=== PATIENT | male | born 2005 | race Caucasian/White ===

== ENCOUNTER 2025-08-08 16:29 | Outpatient (AMB) | payer BC, SELFPAY ==
--- OUTSIDE RECORDS SUMMARY | 2024-10-19 05:00 | XMS_ITS ---
Author Organization [facility] [address] Address [address] [place] [address] Care Team Providers Care Identifier Horse Name Role Phone CONCHITA JAMILAH Unavailable [phone] Encounters Encounter Location Date Provider Diagnosis [facility] [address] [place] [address] 10/19/2024 JAMILAH ARANGO Plan Of Treatment No Information Progress Notes * Douglas SUNDOB: [birth year] (20 yo M)Acc No.[id number]:10/19/2024 Progress Notes Patient: Douglas MENDIOLA Provider: Shahrzad ARANGO PA-C :2005 A ge:19 Y S ex:Male Date:10/19/2024 Address:[address] [facility] [id number] Subjective: * Chief Complaints: * * Medical History: Objective: * Vitals: Assessment: Plan: * Treatment: * Images: Billing Information: * Visit Code: * Procedure Codes: * Electronic signature of VANNA ARANGO PA-C on 08/08/2025 at 07:09 PM EDT Sign off status: Pending * Provider: Shahrzad ARANGO PA-C Date: 12/19/2023 Generated for Jorge velez/Tawana/Gia on: 0 08/08/2025 07:09 PM EDT
--- NOTE | 2025-08-08 16:31 | MHC.PC.OV ---
Vital Signs 08/08/25 16:44 Height 6 ft 3.12 in Weight 187 lb 8 oz BMI 23.4 BP 120/60 Blood Pressure Location Lt brachial Position Sitting Respiration 16 Pulse 81 Pulse Source Pulse Oximeter Temp 97.9 F Temp Source Oral Pulse Oximetry (%) 97 Oxygen Delivery Method Room Air Intake Visit Reasons: Severe Migraines Intake Note: establish care Glassware Defect Repairer Required: No Accompanied by: Self / Same As Patient Allergies No Known Allergies Allergy (Verified 08/08/25 16:31) Tobacco use date assessed: 08/08/25 Dental Screening Dental Screen Date: 08/08/25 Did you have a dental visit in the last 12 months?: Yes Did you have a dental problem in the last 6 months where you did not have access to dental care?: No Was dental information given to patient?: Patient has dentist HPI HPI Comments History of Present Illness Details History of Present Illness The patient is a 20-year-old male presenting to [facility] care and discuss ADHD and history of migraines. Attention-Deficit/Hyperactivity Disorder (ADHD): - Diagnosed by a sheltered workshop executive director. - Takes lisdexamfetamine (Vyvanse) 40 mg as needed, effective in focus and migraine prevention. History of migraines: - Previously experienced, now mitigated by lisdexamfetamine. Tobacco use: - Smoking since age 12, now minimal and reducing. - Uses Nicotrol for cessation, smokes approximately two daily. Health Maintenance - Discussed comprehensive metabolic panel, hemoglobin A1c, lipid panel, complete blood count, vitamin D, magnesium, HIV, and hepatitis screening. - Emphasized the importance of good nutrition and avoiding processed foods for overall health. - Discussed quitting smoking with the aid of nicotine replacement therapy like Nicotrol. - No STI screening opted by the patient at this time. Review of Systems - HEENT: Denies visual changes, hearing loss. - Respiratory: Denies wheezing, shortness of breath. - Cardiovascular: Denies chest pain or palpitations. - Gastrointestinal: Denies abdominal pain, changes in bowel habits. - Neurological: Denies current headaches or dizziness. - Psychological: Reports appropriate mood and affect; denies depressive symptoms or anxiety. 10-point ROS reviewed and negative except as noted in HPI Medication History - Lisdexamfetamine 40 mg used as needed for ADHD and migraine prevention. - Nicotine nasal spray for smoking cessation. Current Substance Use - Smokes approximately two cigarettes daily. - Prior use of vaping, now ceased. - Occasional cannabis use. Substance Use History - Began smoking at age 12, primarily tobacco and minimal cannabis use. Past Medical History - Attention-Deficit/Hyperactivity Disorder (ADHD). - History of migraines. Family History - Positive for maternal and paternal family members with cancer, including breast cancer and other unspecified cancers. 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 - Sufficient sleep with current six to seven hours per night. - Reports good nutrition based on recommendations from knowledgeable peer. - Assisting in smoking cessation; currently using Nicotrol spray. Physical Exam - General- Well-appearing, in no acute distress. - Vitals- Within normal limits. - HEENT- Normocephalic, atraumatic, PERRLA, EOMI, conjunctiva clear, sclera anicteric, oropharynx clear, mucous membranes moist, TMs intact bilaterally. - Neck- Supple, no lymphadenopathy, no thyromegaly, no JVD or carotid bruits. - Cardiovascular- RRR, normal S1/S2, no murmurs, rubs, or gallops, peripheral pulses 2+ and symmetric, no edema. - Respiratory- Lungs clear to auscultation bilaterally, no wheezes, rales, or rhonchi, normal effort. - Abdomen- Soft, non-tender, non-distended, normoactive bowel sounds, no hepatosplenomegaly, no masses. - MSK- Full range of motion, no joint swelling or deformity, normal gait. - Skin- Warm, dry, intact, no rashes, lesions, or pallor. - Neuro- Alert and oriented x3, cranial nerves II-XII intact, strength 5/5 throughout, sensation intact, reflexes 2+ symmetric, normal coordination and gait. - Psych- Appropriate mood and affect, normal judgment and insight. Discussion Notes We discussed the patient's history of ADHD and migraines. The current management involves intermittent use of lisdexamfetamine, which has successfully managed symptoms of ADHD and prevented migraines. We also covered the patient's efforts to quit smoking and use of Nicotrol nasal spray. We talked about the importance of good diet and the avoidance of processed foods to maintain overall health. I explained the tests ordered, including the comprehensive metabolic panel, hemoglobin A1c, lipid profile, and other relevant screenings. We reviewed the family history of cancer and addressed potential lifestyle factors, including nutrition and tobacco use, that might influence future health risks. Follow-up will be determined based on test results and further evaluation of current management efficacy. Plan 1. Attention-Deficit/Hyperactivity Disorder Adhd - Continue lisdexamfetamine 40 mg as needed, monitoring efficacy and side effects. 2. History Of Migraines - No additional treatment needed under current lisdexamfetamine use. 3. Tobacco Use - Continued use of nicotine nasal spray to aid smoking cessation, reinforcement of cessation strategies. Patient Instructions - Take lisdexamfetamine as prescribed. - Try to quit smoking using Nicotrol nasal spray; aim to reduce cigarette intake. - Eat healthy, focusing on balanced meals with real ingredients. - Follow up on lab tests when they are ready. - Come back if you feel ill or have any new symptoms. PFSH Family History (Updated 08/08/25 @ 16:43 by Aj Workman MA) Father Cancer Addiction Mother Cancer Addiction Social History (Updated 08/08/25 @ 16:44 by Aj Workman MA) Housing: Apartment Alcohol intake: current Alcohol intake frequency: a few times a week Patient Tobacco Use Status: Former Tobacco user service: No Current occupational status: employed Cognitive needs: No Hearing needs: No Vision needs: No Questionnaire PHQ-9 Over the last 2 weeks, how often have you been bothered by any of the following problems? 1. Little interest or pleasure in doing things: nearly every day 2. Feeling down, depressed, or hopeless: not at all 3. Trouble falling or staying asleep, or sleeping too much: not at all 4. Feeling tired or having little energy: not at all 5. Poor appetite or overeating: not at all 6. Feeling bad about yourself - or that you are a failure or have let yourself or your family down: not at all 7. Trouble concentrating on things, such as reading the newspaper or watching television: not at all 8. Moving or speaking so slowly that other people could have noticed. Or the opposite - being so fidgety or restless that you have been moving around a lot more than usual: more than half the days 9. Thoughts that you would be better off or of hurting yourself in some way: not at all Total score: 5 Depression Screening Interpretation: Positive Depression Screening Done: Yes Source: Developed by Drs. Chau Hale, Carmina Back, Domingo Payne and colleagues, with an educational clemente from [employer]. Thrive Questionnaire Date Thrive assessed: 08/08/25 I am a: Patient What is your living situation today?: I have a steady place to live Within the past 12 months, did the food you bought not last and you didn't have the money to get more?: Never true Within the past 12 months, did you worry whether your food would run out before you got money to buy more?: Never true Do you have trouble paying for medicines?: No Do you have trouble getting transportation to medical appointments?: No Do you have trouble paying your heating and electricity bill?: No Do you have trouble taking care of your child, family member or friend?: No Are you currently unemployed and looking for a job?: No Are you interested in more education?: No Please select the resources that you would like help with: None Currently or been in a relationship where the following occur: No concerns reported THRIVE Score: 0 AUDIT C Alcohol Use Questionnaire (AUDIT-C) 1. How often do you have a drink containing alcohol?: 2-4 times a month 2. How many drinks containing alcohol do you have on a typical day when you are drinking?: 5 or 6 3. How often do you have six or more drinks on one occasion?: Less than monthly Total Score: 5 KATIE-7 AMB Questionnaire KATIE-7 Date KATIE - 7 assessed: 08/08/25 Feeling nervous, anxious, or on edge: 0 = Not at all Not being able to stop or control worryin = Not at all Worrying too much about different things: 0 = Not at all Trouble relaxin = Not at all Being so restless that it is hard to sit still: 0 = Not at all Becoming easily annoyed or irritable: 0 = Not at all Feeling afraid as if something awful might happen: 0 = Not at all Total KATIE-7 score (0-4 normal; 5-9 mild; 10-14 moderate; 15-21 severe): 0 Source: Developed by Carmina Mauricio Kurt Kroenke and colleagues, with an educational clemente from [employer]. Physical exam (Primary Care) Vital Signs: Last Vital Signs Temp 97.9 F 08/08/25 16:44 Pulse 81 08/08/25 16:44 Resp 16 08/08/25 16:44 BP 120/60 08/08/25 16:44 Pulse Ox 97 08/08/25 16:44 Oxygen Delivery Method Room Air 08/08/25 16:44 BMI result Body Mass Index 23.4 Tobacco/Smoking Status: Tobacco use Status Tobacco use date assessed 08/08/25 08/08/25 16:35 Patient Tobacco Use Status Former Tobacco user 08/08/25 16:49 PHQ-9: PHQ-9 Score PHQ-9: Total score 5 08/08/25 16:49 Depression Screening Interpretation: Positive Thrive Assessment: Date of Thrive Assessment Date Thrive assessed 08/08/25 08/08/25 16:35 Currently or been in a relationship where the following occur: No concerns reported Coding Level of Care Code New Pt Level 3 (53921) Diagnoses Encounter to establish care with new provider Z76. Routine lab draw Z. Encounter for screening, unspecified Z13.9 Counseling, unspecified Z71.9 Screening for HIV (human immunodeficiency virus) Z11.4 Screening for diabetes mellitus Z13.1 Screening for lipoid disorders Z13.220 Screening for depression Z13.31 Hypertension screen Z13.6 Adjustment disorder with depressed mood F43.21 Nicotine use Z72.0 ADHD (attention deficit hyperactivity disorder) F90.9 Attention deficit-hyperactivity disorder type: unspecified Migraines G43.909 Migraine type: unspecified Intractability: not intractable Assessment & Plan Assessment & Plan (1) Encounter to establish care with new provider: Code(s): Z76.89 - Persons encountering health services in other specified circumstances (2) Routine lab draw: Code(s): Z01.89 - Encounter for other specified special examinations (3) Encounter for screening, unspecified: Code(s): Z13.9 - Encounter for screening, unspecified (4) Counseling, unspecified: Code(s): Z71.9 - Counseling, unspecified (5) Screening for HIV (human immunodeficiency virus): Code(s): Z11.4 - Encounter for screening for human immunodeficiency virus [HIV] (6) Screening for diabetes mellitus: Code(s): Z13.1 - Encounter for screening for diabetes mellitus (7) Screening for lipoid disorders: Code(s): Z13.220 - Encounter for screening for lipoid disorders (8) Screening for depression: Code(s): Z13.31 - Encounter for screening for depression (9) Hypertension screen: Code(s): Z13.6 - Encounter for screening for cardiovascular disorders (10) Adjustment disorder with depressed mood: Code(s): F43.21 - Adjustment disorder with depressed mood (11) Nicotine use: Code(s): Z72.0 - Tobacco use (12) ADHD (attention deficit hyperactivity disorder): Code(s): F90.9 - Attention-deficit hyperactivity disorder, unspecified type Qualifiers: Attention deficit-hyperactivity disorder type: unspecified (13) Migraines: Code(s): G43.909 - Migraine, unspecified, not intractable, without status migrainosus Qualifiers: Migraine type: unspecified Intractability: not intractable Plan Orders: Orders Comprehensive Met. Panel Today Z13.9 - Encounter for screening, unspecified, Z76.89 - Persons encountering health services in other specified circumstances Hepatitis B Surface Antibody Today Z13.9 - Encounter for screening, unspecified, Z76.89 - Persons encountering health services in other specified circumstances HIV Ab/Ag Today Z13.9 - Encounter for screening, unspecified, Z76.89 - Persons encountering health services in other specified circumstances Magnesium Today Z13.9 - Encounter for screening, unspecified, Z76.89 - Persons encountering health services in other specified circumstances Complete Blood Count Auto Diff Today Z13.9 - Encounter for screening, unspecified, Z76.89 - Persons encountering health services in other specified circumstances Hemoglobin A1c Today Z13.9 - Encounter for screening, unspecified, Z76.89 - Persons encountering health services in other specified circumstances Hepatitis B Surface Antigen Today Z13.9 - Encounter for screening, unspecified, Z76.89 - Persons encountering health services in other specified circumstances Hepatitis C Antibody Today Z13.9 - Encounter for screening, unspecified, Z76.89 - Persons encountering health services in other specified circumstances Lipid Panel Today Z13.9 - Encounter for screening, unspecified, Z76.89 - Persons encountering health services in other specified circumstances TSH reflex Free T4 Today Z13.9 - Encounter for screening, unspecified, Z76.89 - Persons encountering health services in other specified circumstances UA CC w/rflx Micro + Cult Today Z13.9 - Encounter for screening, unspecified, Z76.89 - Persons encountering health services in other specified circumstances Vitamin D 1,25 dihydroxy Today Z13.9 - Encounter for screening, unspecified, Z76.89 - Persons encountering health services in other specified circumstances Medications: New nicotine (Nicotrol NS) 1 spray intranasal Q2H PRN 40 mL 0RF nicotine cravings
[2025-08-08 16:44] VITALS: BP 120/60; PULSE 81; RESP 16; TEMP 36.6; O2SAT 97; BMI 23.4
--- OUTSIDE RECORDS SUMMARY | 2025-08-08 19:09 | XMS_ITS | Patient Health Record ---
Author Organization [facility] [address] Address [address] [facility] [place] [address] Care Team Providers Care After School Coordinator Name Role Phone JAMILAH ARANGO Unavailable [phone] Reason For Referral No Information Plan Of Treatment No Information Insurance Providers Payer Name Payer Address Payer Phone Subscriber Number Group Number Insured Name Patient Relationship to Insured Coverage Start Date Coverage End Date [facility] [address] [place] [address] [id number] 3 Douglas Leal Self - patient is the insured
--- OUTSIDE RECORDS SUMMARY | 2025-08-08 19:09 | XMS_ITS | Clinical Summary ---
Author Organization [facility] Address [address] [place] [address] Phone Care Team Providers Care Acid Dumper Name Role Phone Bebo Trujillo MD Primary Care Provider [phone] Allergies No known active allergies Medications No known medications Social History Tobacco Use Types Packs/Day Years Used Date Smoking Tobacco: Former Cigarettes Smokeless Tobacco: Never Tobacco Cessation:Counseling Given: Not Answered Sex and Gender Information Value Date Recorded Sex Assigned at Male 04/08/2025 12:45 PM EDT Legal Sex Male 10:11 AM EDT Gender Identity Male 04/08/2025 12:45 PM EDT Sexual Orientation Not on file Obstetrics History Last Filed Vital Signs Vital Sign Reading Time Taken Comments Blood Pressure 129/72 04/08/2025 10:19 AM EDT Pulse 84 04/08/2025 10:19 AM EDT Temperature 36.6 C (97.8 F) 04/08/2025 10:19 AM EDT Respiratory Rate 16 04/08/2025 10:19 AM EDT Oxygen Saturation 98% 04/08/2025 10:19 AM EDT Inhaled Oxygen Concentration - - Weight 88.5 kg (195 lb) 04/08/2025 10:19 AM EDT Height 190.5 cm (6' 3 ) 04/08/2025 10:19 AM EDT Body Mass Index 24.37 04/08/2025 10:19 AM EDT Plan of Treatment Health Maintenance Due Date Last Done Comments Depression Screening 11/23/2024 HIV Screening 04/08/2025 Hepatitis C Screening 04/08/2025 Social Influencers of Health Screening 04/08/2025 COVID-19 Vaccine ( season) 2025 02/05/2021, 01/15/2021 Influenza Vaccine (#1) 2025 , 08/02/2020, 12/01/2018, Additional history exists DTaP,Tdap,and Td Vaccines (8 - Td or Tdap) 05/30/2034 05/30/2024, 09/30/2016, 07/02/2007, Additional history exists Hepatitis B Vaccines Completed 2003, 2003, 2003 HIB Vaccines Completed 04/10/2004, 06/23, 2003, Additional history exists Pneumococcal Vaccine: Pediatrics (0 to 5 Years) and At-Risk Patients (6 to 49 Years) Completed 01/08/2005, 07/12/2004, 2003, Additional history exists IPV Vaccines Completed 07/02/2007, 06/24, 2003, Additional history exists MMR Vaccines Completed 04/28/2008, 12/24, 01/08/2004 Varicella Vaccines Completed 04/28/2008, 04/10/2004 Hepatitis A Vaccines Completed 01/13/2013, 07/22/20 10 HPV Vaccines Completed 09/11/2016, 08/31/2015 Meningococcal ACWY Vaccine Completed 06/13/2019, Meningococcal B Vaccine Completed 08/02/2020, 06/13 RSV Immunization Patients Under 20 months Aged Out No longer eligible based on patient's age to complete this [place] [phone] [facility] Care Teams Acid Dumper Relationship Specialty Start Date End Date Bebo Trujillo MD [address] [facility] [address] [place] [address] PCP - General Pediatrics 04/08/25
--- OUTSIDE RECORDS SUMMARY | 2025-08-08 19:09 | XMS_ITS | Clinical Summary ---
Author Organization [facility] [employer] [facility] Address [address] [place] [address] Care Team Providers Care Evaporative Cooler Installer Name Role Phone Pcp, No Primary Care Provider [phone] Allergies No known active allergies Medications No known medications Immunizations Immunization Administration Dates Next Due Boostrix (Tdap) Prefilled Syringe 05/30/2024 Social History Tobacco Use Types Packs/Day Years Used Date Smoking Tobacco: Never Smokeless Tobacco: Never Tobacco Cessation:Counseling Given: Yes Sex and Gender Information Value Date Recorded Sex Assigned at Not on file Legal Sex Male 1:25 PM EST Gender Identity Not on file Sexual Orientation Not on file Last Filed Vital Signs Vital Sign Reading Time Taken Comments Blood Pressure 112/68 05/30/2024 12:28 PM EDT Pulse 93 05/30/2024 12:28 PM EDT Temperature 36.8 C (98.2 F) 05/30/2024 12:28 PM EDT Respiratory Rate 12 05/30/2024 12:28 PM EDT Oxygen Saturation 98% 05/30/2024 12:28 PM EDT Inhaled Oxygen Concentration - - Weight - - Height - - Body Mass Index - - Plan of Treatment Health Maintenance Due Date Last Done Comments Depression: Screening Annually using PHQ-2/9 in Adults 18 yrs or above (or HM Modifier)([facility]) 2021 Hepatitis C Virus Infection in Adolescents and Adults: Screening (or Modifier) ([facility]) 2021 SDOH Screening Reminder: Annually for all adults ([facility]) 2021 Tobacco Smoking Cessation: i n Adults excluding Women: Behavioral and Pharmacotherapy Interventions ([facility]) 05/30/2025 05/30/2024 Flu Vaccination: Yearly for ages 18mos through 64 years (or Modifier)([facility]) 06/23/2025 DTaP/Tdap/Td Vaccines ([facility]) (8 - Td or Tdap) 05/30/2034 05/30/2024, 09/30/2016, 07/02/2007, Additional history exists Zoster/Shingles Vaccine Series Screening: Adults aged 18+ yrs (or HM Modifiers)([facility] ) (1 of 2) 2053 04/28/2008, 04/10/2004 Pneumococcal Vaccination Screening: Pts 0-19 & 19-49 yrs of age ([facility] ) Aged Out 01/08/2005, 07/12/2004, 2003, Additional history exists No longer eligible based on patient's age to complete this topic Medical Devices Not on file Insurance [facility] Care Teams Evaporative Cooler Installer Relationship Specialty Start Date End Date Pcp, Evelina PCP - General Family Medicine 05/30/24
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
== END 2025-08-08 17:07 | disposition home or self-care (01) ==
PROVIDERS: PCP Student in an Organized Health Care Education/Training Program; Visit Provider Student in an Organized Health Care Education/Training Program
DX: G43.909 Migraine, unspecified, not intractable, without status migrainosus (principal); F43.21 Adjustment disorder with depressed mood; F90.9 Attention-deficit hyperactivity disorder, unspecified type; Z72.0 Tobacco use

== ENCOUNTER 2025-08-23 14:08 | Outpatient (REF) | payer BC, SELFPAY ==
--- OUTSIDE RECORDS SUMMARY | 2025-08-23 15:27 | XMS_ITS | Clinical Summary ---
Author Organization [facility] Address [address] [place] [address] Phone Care Team Providers Care Pilot Steam [employer]acht Name Role Phone Bebo Trujillo MD Primary Care Provider [phone] Allergies No known active allergies Medications No [...] 05/30/2034 05/30/2024, 09/30/2016, 07/02/2007, Additional history exists RSV Immunization Adult Patients (1 - 1-dose 75+ series) 2078 Hepatitis B Vaccines Completed 2003, 2003, 2003 HIB Vaccines Completed 04/10/2004, 06/23, 2003, Additional history exists Pneumococcal Vaccine: Pediatrics (0 to 5 Years) and At-Risk Patients (6 to 49 Years) Completed 01/08/2005, 07/12/2004, 2003, Additional history exists IPV Vaccines Completed 07/02/2007, 06/24, 2003, Additional history exists MMR Vaccines Completed 04/28/2008, 12/24, 01/08/2004 Varicella Vaccines Completed 04/28/2008, 04/10/2004 Hepatitis A Vaccines Completed 01/13/2013, 07/22/20 HPV Vaccines Completed 09/11/2016, 08/31/2015 Meningococcal ACWY Vaccine Completed 06/13/2019, Meningococcal B Vaccine Completed 08/02/2020, 06/13 RSV Immunization Patients Under 20 months Aged Out No longer eligible based on patient's age to complete this [place] [id number] [place]) Care Teams [employer] Relationship Specialty Start Date End Date Bebo Trujillo MD [address] [facility] [address] [place] [address] PCP - General Pediatrics 04/08/25
--- OUTSIDE RECORDS SUMMARY | 2025-08-23 15:27 | XMS_ITS | Clinical Summary ---
Author Organization [facility] Address [address] [place] [address] Care Team Providers Care Bronc Buster Name Role Phone Pcp, No Primary Care Provider [phone] Allergies No known active allergies Medications No [...] Adults 18 yrs or above (or HM Modifier)([facility]) 2021 Hepatitis C Virus Infection in Adolescents and Adults: Screening (or Modifier) ([facility]) 2021 SDOH Screening Reminder: Annually for all adults ([facility]) 2021 Tobacco Smoking Cessation: i n Adults excluding Women: Behavioral and Pharmacotherapy Interventions ([facility]) 05/30/2025 05/30/2024 Flu Vaccination: Yearly for ages 18mos through 64 years (or Modifier)([facility]) 06/23/2025 COVID-19 Vaccine Screening: Initial Series and Booster Status (CVS) (1 - 2023-25 season) 2025 DTaP/Tdap/Td Vaccines (CVS) (8 - Td or Tdap) 05/30/2034 05/30/2024, 09/30/2016, 07/02/2007, Additional history exists Zoster/Shingles Vaccine Series Screening: Adults aged 18+ yrs (or HM Modifiers)([facility]) (1 of 2) 2053 04/28/2008, 04/10/2004 Pneumococcal Vaccination Screening: Pts 0-19 & 19-49 yrs of age ([facility]) Aged Out 01/08/2005, 07/12/2004, 2003, Additional history exists No longer eligible based on patient's age to complete this topic Medical Devices Not on file Insurance [facility] Care Teams Bronc Buster Relationship Specialty Start Date End Date Pcp, Evelina PCP - General Family Medicine 05/30/24
[2025-08-23 18:10] LABS: MANUAL DIFF FLAG NO
[2025-08-23 18:12] LABS: Hematocrit 41.1 % (42.0-52.0); Hemoglobin 13.9 g/dl (14.0-18.0); Imm Gran Abs Auto 0.02 X10*3/uL (0.00-0.03); Imm Gran Pct Auto 0.3 % (0.0-0.4); Lymphocytes Absolute Auto 1.9 X10*3/uL (1.2-4.9); Mean Corpuscular HGB Conc 33.8 g/dl (31.0-36.0); Mean Corpuscular Hemoglobin 30.8 pg (27.0-33.0); Mean Corpuscular Volume 91.1 fL (80.0-98.0); NRBC Abs Auto 0.000 X10*3/uL (0.0-0.012); NRBC Pct Auto 0.0 /100WBC (0.0-0.2); Platelet Count 256 X10*3/uL (160-400); Red Blood Count 4.51 X10*6/uL (4.60-5.80); White Blood Count 7.4 X10*3/uL (4.8-10.8)
[2025-08-23 18:20] LABS: Appearance Urine Clear; Glucose Urine UA Negative (Negative); PH 7.5 (5.0-9.0); Specific Gravity - Urine 1.020 (1.005-1.025)
[2025-08-23 18:39] LABS: Alanine Aminotransferase 29 U/L (0-40); Albumin Level 4.6 g/dL (3.5-5.0); Alkaline Phosphatase 75 U/L (39-117); Anion Gap 12 (12-20); Aspartate Amino Transferase 37 U/L (5-37); Blood Urea Nitrogen 19 mg/dL (9-16); Calcium 9.3 mg/dL (8.4-10.2); Carbon Dioxide 25 mmol/L (22-29); Chloride 107 mmol/L (96-108); Cholesterol 162 mg/dL (<200); Estimated Glomerular Filt Rate > 60; HDL Cholesterol 51 mg/dL (>40); Magnesium 2.0 mg/dL (1.6-2.6); Potassium 4.3 mmol/L (3.3-5.1); Sodium 140 mmol/L (135-145); Total Protein 7.0 g/dL (6.5-8.0); Triglycerides 118 mg/dL (<150)
[2025-08-24 05:08] LABS: HBS Num1 0.20 mIU/mL (0-7.99); HBsAGNum1 0.40 S/CO (0.00-0.99); HIV Num 1 0.29 S/CO (0.00-0.99); Hepatitis B Surface Antigen Negative (Negative); ~HepC Num1 0.13 S/CO (0.00-0.79); ~Hepatitis B Surface Antibody NONREACTIVE (Nonreactive); ~Hepatitis C Antibody Nonreactive (Nonreactive)
[2025-08-24 05:31] LABS: Hemoglobin A1C 128.8022 umol/L; Total Hemoglobin (HGBA1C) 3684.6746 umol/L
[2025-08-27 05:13] LABS: VITAMIN D (1,25 OH) D3 31 pg/mL; Vit D (1,25-Dihydroxy) Total 31 pg/mL (18-72); Vitamin D (1,25 OH) D2 <8 pg/mL
== END 2025-08-23 14:09 | disposition home or self-care (01) ==
LOC: HO.HKASLDS 14:08
PROVIDERS: PCP Student in an Organized Health Care Education/Training Program; Visit Provider Student in an Organized Health Care Education/Training Program
DX: Z13.89 Encounter for screening for other disorder (principal); Z11.4 Encounter for screening for human immunodeficiency virus [HIV]; Z76.89 Persons encountering health services in other specified circumstances; Z13.1 Encounter for screening for diabetes mellitus; Z13.6 Encounter for screening for cardiovascular disorders; Z13.21 Encounter for screening for nutritional disorder; Z13.29 Encounter for screening for other suspected endocrine disorder
CPT/HCPCS: 36415; 80053; 80061; 81003; 82652; 83036; 83735; 84443; 85025; 86706; 86803; 87340; 87389

== ENCOUNTER 2025-09-04 13:52 | Outpatient (AMB) | payer BC, SELFPAY ==
--- OUTSIDE RECORDS SUMMARY | 2024-10-19 05:00 | XMS_ITS ---
Author Organization [facility] [address] Address [address] [place] [address] Care Team Providers Care Solar Design Engineer Name Role Phone CONCHITA JAMILAH Unavailable [phone] Encounters Encounter Location Date Provider Diagnosis [facility] [address] [place] [address] 10/19/2024 JAMILAH ARANGO Plan Of Treatment No Information Progress Notes * Douglas SUNDOB: [birth year] (20 yo M)Acc No.[id number]:10/19/2024 Progress Notes Patient: Douglas MENDIOLA Provider: Shahrzad ARANGO PA-C :2005 A ge:19 Y S ex:Male Date:10/19/2024 Address:[address] [facility] [id number] Subjective: * Chief Complaints: * * Medical History: Objective: * Vitals: Assessment: Plan: * Treatment: * Images: Billing Information: * Visit Code: * Procedure Codes: * Electronic signature of VANNA ARANGO PA-C on 09/04/2025 at 01:55 PM EDT Sign off status: Pending * Provider: Shahrzad ARANGO PA-C Date: 12/19/2023 Generated for Jorge velez/Tawana/Gia on: 01:55 PM EDT
--- NOTE | 2025-09-04 13:52 | MHC.PC.OV ---
Vital Signs 09/04/25 13:54 Height 6 ft 3.12 in Weight 186 lb 4 oz BMI 23.2 BP 117/55 L Blood Pressure Location Lt brachial Position Sitting Pulse 77 Pulse Source Pulse Oximeter Temp 97.9 F Temp Source Oral Pulse Oximetry (%) 97 Oxygen Delivery Method Room Air Intake Visit Reasons: r/s'd from 09/06 f/u labs Intake Note: establish care Field Auditor Required: No Accompanied by: Self / Same As Patient Allergies No Known Allergies Allergy (Verified 09/04/25 13:54) Tobacco use date assessed: 09/04/25 Dental Screening Dental Screen Date: 09/04/25 Did you have a dental visit in the last 12 months?: Yes Did you have a dental problem in the last 6 months where you did not have access to dental care?: No Was dental information given to patient?: Patient has dentist HPI HPI Comments History of Present Illness Details Consent Patient was informed and verbally consented to the use of an ambient scribe for clinic note documentation during this visit. History of Present Illness The patient is a 20-year-old male presenting for a follow-up on labs and discussion on smoking cessation. ADHD currently on lisdexamfetamine 40 mg Current nicotine use continues to smoke, trying to quit lab results within normal limits patient verbalizes understanding of lab results Review of Systems - Respiratory: Denies dyspnea, cough, or wheezing. 10-point ROS reviewed and negative except as noted in HPI Past Medical History - History of smoking since age 10. Health Maintenance - Smoking cessation discussed as a preventative measure against Chronic Obstructive Pulmonary Disease (COPD). Physical Exam General: Well-appearing, in no acute distress. Vital signs: Within normal limits. HEENT: Normocephalic, atraumatic. PERRLA, EOMI. Conjunctiva clear, sclera anicteric. Oropharynx clear, mucous membranes moist. TMs intact bilaterally. Neck: Supple, no lymphadenopathy, no thyromegaly, no JVD or carotid bruits. Cardiovascular: RRR, normal S1/S2, no murmurs, rubs, or gallops. Peripheral pulses 2+ and symmetric. No edema. Respiratory: Lungs clear to auscultation bilaterally, no wheezes, rales, or rhonchi. Normal effort. Abdomen: Soft, non-tender, non-distended. Normoactive bowel sounds. No hepatosplenomegaly, no masses. MSK: Full range of motion, no joint swelling or deformity. Normal gait. Skin: Warm, dry, intact. No rashes, lesions, or pallor. Neuro: Alert and oriented x3. Cranial nerves II-XII intact. Strength 5/5 throughout. Sensation intact. Reflexes 2+ symmetric. Normal coordination and gait. Psych: Appropriate mood and affect. Normal judgment and insight. Plan 1. ADHD continue current medication medication refilled side 2. nicotine use continue nicotine spray and work on smoking cessation Discussion Notes During the visit, I discussed the importance of smoking cessation with the patient to prevent Chronic Obstructive Pulmonary Disease (COPD). I explained the long-term effects of smoking on lung elasticity and the potential for developing COPD if smoking continues. Patient Instructions - Quit smoking to reduce the risk of developing Chronic Obstructive Pulmonary Disease (COPD). - Follow up in three to six months for reassessment. Medical Decision Making The primary focus of this visit was to address the patient's smoking habits and the associated risk of developing Chronic Obstructive Pulmonary Disease (COPD). Given the patient's young age and current lack of respiratory symptoms, smoking cessation was emphasized as a critical preventative measure. labs were also discussed at this time where they were found to be within normal limits Total time spent caring for the patient today was 30 minutes. This includes time spent before the visit reviewing the chart, time spent documenting, and time spent reviewing laboratory results, diagnostic imaging, medications, performing a medically necessary evaluation, counseling on diagnoses. [facility] Family History Father Cancer Addiction Mother Cancer Addiction Social History Housing: Apartment Alcohol intake: current Alcohol intake frequency: a few times a week Patient Tobacco Use Status: Former Tobacco user service: No Current occupational status: employed Cognitive needs: No Hearing needs: No Vision needs: No Questionnaire PHQ-9 Over the last 2 weeks, how often have you been bothered by any of the following problems? 1. Little interest or pleasure in doing things: nearly every day 2. Feeling down, depressed, or hopeless: not at all 3. Trouble falling or staying asleep, or sleeping too much: not at all 4. Feeling tired or having little energy: not at all 5. Poor appetite or overeating: not at all 6. Feeling bad about yourself - or that you are a failure or have let yourself or your family down: not at all 7. Trouble concentrating on things, such as reading the newspaper or watching television: not at all 8. Moving or speaking so slowly that other people could have noticed. Or the opposite - being so fidgety or restless that you have been moving around a lot more than usual: more than half the days 9. Thoughts that you would be better off or of hurting yourself in some way: not at all Total score: 5 Depression Screening Interpretation: Positive Depression Screening Done: Yes Source: Developed by Drs. Chau Hale, Carmina Back, Domingo Payne and colleagues, with an educational clemente from [employer]. Thrive Questionnaire Date Thrive assessed: 09/04/25 I am a: Patient What is your living situation today?: I have a steady place to live Within the past 12 months, did the food you bought not last and you didn't have the money to get more?: Never true Within the past 12 months, did you worry whether your food would run out before you got money to buy more?: Never true Do you have trouble paying for medicines?: No Do you have trouble getting transportation to medical appointments?: No Do you have trouble paying your heating and electricity bill?: No Do you have trouble taking care of your child, family member or friend?: No Are you currently unemployed and looking for a job?: No Are you interested in more education?: No Please select the resources that you would like help with: None Currently or been in a relationship where the following occur: No concerns reported THRIVE Score: 0 AUDIT C Alcohol Use Questionnaire (AUDIT-C) 1. How often do you have a drink containing alcohol?: 2-4 times a month 2. How many drinks containing alcohol do you have on a typical day when you are drinking?: 5 or 6 3. How often do you have six or more drinks on one occasion?: Less than monthly Total Score: 5 KATIE-7 AMB Questionnaire KATIE-7 Date KATIE - 7 assessed: 09/04/25 Feeling nervous, anxious, or on edge: 0 = Not at all Not being able to stop or control worryin = Not at all Worrying too much about different things: 0 = Not at all Trouble relaxin = Not at all Being so restless that it is hard to sit still: 0 = Not at all Becoming easily annoyed or irritable: 0 = Not at all Feeling afraid as if something awful might happen: 0 = Not at all Total KATIE-7 score (0-4 normal; 5-9 mild; 10-14 moderate; 15-21 severe): 0 Source: Developed by Drs. Chau Hale, Carmina Back, Domingo Payne and colleagues, with an educational clemente from [employer]. Physical exam (Primary Care) Vital Signs: Last Vital Signs Temp 97.9 F 09/04/25 13:54 Pulse 77 09/04/25 13:54 BP 117/55 L 09/04/25 13:54 Pulse Ox 97 09/04/25 13:54 Oxygen Delivery Method Room Air 09/04/25 13:54 BMI result Body Mass Index 23.2 Tobacco/Smoking Status: Tobacco use Status Tobacco use date assessed 09/04/25 09/04/25 13:57 Patient Tobacco Use Status Former Tobacco user 09/04/25 13:54 PHQ-9: PHQ-9 Score PHQ-9: Total score 5 09/04/25 13:57 Depression Screening Interpretation: Positive Thrive Assessment: Date of Thrive Assessment Date Thrive assessed 09/04/25 09/04/25 13:57 Currently or been in a relationship where the following occur: No concerns reported Coding Level of Care Code Est Pt Level 4 (52248) Diagnoses Attention Deficit Hyperactivity Disorder (ADHD) F90.9 Nicotine use Z72.0 Migraine headache G43.909 Assessment & Plan Assessment & Plan (1) Attention Deficit Hyperactivity Disorder (ADHD): Code(s): F90.9 - Attention-deficit hyperactivity disorder, unspecified type (2) Nicotine use: Code(s): Z72.0 - Tobacco use (3) Migraine headache: Code(s): G43.909 - Migraine, unspecified, not intractable, without status migrainosus Plan Medications: New lisdexamfetamine 40 mg PO QAM 30 caps 0RF
[2025-09-04 13:54] VITALS: BP 117/55; PULSE 77; TEMP 36.6; O2SAT 97; BMI 23.2
--- OUTSIDE RECORDS SUMMARY | 2025-09-04 13:55 | XMS_ITS | Clinical Summary ---
Author Organization [facility] Address [address] [place] [address] Care Team Providers Care Podiatrist Name Role Phone Pcp, No Primary Care Provider [phone] Allergies No known active allergies Medications No [...] Adults 18 yrs or above (or HM Modifier)([facility]) 2021 Hepatitis C Virus Infection in Adolescents and Adults: Screening (or Modifier) ([facility]) 2021 SDOH Screening Reminder: Annually for all adults ([facility]) 2021 Tobacco Smoking Cessation: i n Adults excluding Women: Behavioral and Pharmacotherapy Interventions ([facility]) 05/30/2025 05/30/2024 Flu Vaccination: Yearly for ages 18mos through 64 years (or Modifier)([facility]) 06/23/2025 COVID-19 Vaccine Screening: Initial Series and [...] topic Medical Devices Not on file Insurance [facility] Care Teams Podiatrist Relationship Specialty Start Date End Date Pcp, Evelina PCP - General Family Medicine 05/30/24
--- OUTSIDE RECORDS SUMMARY | 2025-09-04 13:55 | XMS_ITS | Clinical Summary ---
Author Organization [facility] Address [address] [place] [address] Phone Care Team Providers Care Billet Shearer Name Role Phone Bebo Trujillo MD Primary Care Provider [phone] Allergies No known active allergies Medications No [...] complete this [place] [id number] [place]) Care Teams Billet Shearer Relationship Specialty Start Date End Date Bebo Trujillo MD [address] [facility] [address] [place] [address] PCP - General Pediatrics 04/08/25
--- OUTSIDE RECORDS SUMMARY | 2025-09-04 13:55 | XMS_ITS | Patient Health Record ---
Author Organization [facility] Address [address] [address] Care Team Providers Care Cota Name Role Phone JAMILAH ARANGO Unavailable [phone] Reason For Referral No Information Plan Of Treatment No Information Insurance Providers Payer Name Payer Address Payer Phone Subscriber Number Group Number Insured Name Patient Relationship to Insured Coverage Start Date Coverage End Date [facility] [address] [place] [address] [id number] 3 Douglas Leal Self - patient is the insured
== END 2025-09-04 14:14 | disposition home or self-care (01) ==
LOC: HO.HMCFMS 13:52
PROVIDERS: PCP Student in an Organized Health Care Education/Training Program; Visit Provider Student in an Organized Health Care Education/Training Program
DX: F90.9 Attention-deficit hyperactivity disorder, unspecified type (principal); Z72.0 Tobacco use; G43.909 Migraine, unspecified, not intractable, without status migrainosus